=== PATIENT | female | born 1995 | race Caucasian/White ===

== ENCOUNTER 2017-08-28 10:30 | Outpatient (RCR) | payer OTHER, SELFPAY | END 2017-08-28 16:00 | disposition home or self-care (01) | LOC: PT 10:30 | PROVIDERS: PCP Nurse Practitioner Family; Visit Provider Nurse Practitioner Family | DX: M54.5 Low back pain (principal); M54.6 Pain in thoracic spine; M54.2 Cervicalgia | CPT/HCPCS: 97010; 97014; 97035; 97110; 97140; G0283 ==

== ENCOUNTER 2017-09-02 22:48 | Emergency (ER) | payer OTHER, SELFPAY ==
[2017-09-02 22:53] VITALS: BP 137/89; PULSE 77; RESP 18; TEMP 36.7; O2SAT 100; BMI 24.3
[2017-09-02 23:09] LABS: Microscopic, Urine URINE MICROSCOPIC (MICROSCOPIC)
[2017-09-02 23:12] LABS: Appearance,Urine CLEAR (Clear); Bilirubin,Urine Negative (Negative); Blood, Urine 3+ (Negative); Glucose,Urine (UA) Negative (Negative); Ketones,Urine 2+ (Negative); Leukocyte Esterase,Urine Negative (Negative); Nitrate,Urine Negative (Negative); PH,Urine 6.5 (5.0-8.5); Protein,Urine 1+ (Negative); Urobilinogen,Urine 0.2 EU/dl (0.2)
[2017-09-02 23:13] LABS: Color,Urine Amber (Yellow); Urine Pregnancy, HCG Qual. Positive (Negative)
--- NOTE | 2017-09-02 23:23 | HMH.EDPREG ---
ED Disposition Clinical Impression: Threatened in early Rh negative status during Qualifiers: Trimester: first trimester Qualified Code(s): O09.891 - Supervision of other high risk pregnancies, first trimester Disposition: Home, Self-Care Condition on Discharge: Good Instructions: DI for Vaginal Bleeding During Additional Instructions: call pcp in am for follow up and redraw of beta Referrals: Desiree Kate APRN [Primary Care Provider] - - Critical Care Critical Care Time: No Attestation: On 09/02/17, the high probability of a clinically significant, sudden or life threatening deterioration of the following system(s) required my full and direct attention, intervention and personal management. The time I documented below is in addition to time spent performing reported procedures but includes the following listed in this critical care notation. Medical Decision Making - Medical Records Medical records reviewed: Yes: I reviewed the patient's medical records. - Obey Inquiry Pt receiving controlled substance: No Vital Signs: 09/02/17 22:53 Temperature 98.1 F Temperature Source Oral Pulse Rate [Right Radial] 77 Respiratory Rate 18 Blood Pressure [Right Arm] 137/89 Blood Pressure Mean [Right Arm] 105 Blood Pressure Source [Right Arm] Automatic Cuff Blood Pressure Position [Right Arm] Sitting 02 Sat by Pulse Oximetry 100 Oxygen Delivery Method Room Air - Lab Data Lab results reviewed: Yes: I reviewed the patient's lab results. Lab Results 09/02/17 22:55: Urine Color Radha, Urine Appearance Clear, Urine pH 6.5, Ur Specific [place] 1.020, Urine Protein 1+, Urine Glucose (UA) Negative, Urine Ketones 2+, Urine Blood 3+, Urine Nitrate Negative, Urine Bilirubin Negative, Urine Urobilinogen 0.2, Ur Leukocyte Esterase Negative, Urine RBC 10-20, Urine WBC 5-10, Ur Squamous Epith Cells 5-10, Urine Bacteria 2+ 09/02/17 22:55: Urine HCG, Qual Positive 09/02/17 23:45: WBC 7.1, RBC 4.10 L, Hgb 12.6, Hct 38.7, MCV 94.6, MCH 30.8, MCHC 32.6, RDW 12.2, Plt Count 244, MPV 7.2 L, Neut % (Auto) 60.6, Lymph % (Auto) 31.5, [place] % (Auto) 5.7, Eos % (Auto) 1.9, Baso % (Auto) 0.3, Neut # (Auto) 4.3, Lymph # (Auto) 2.3, [place] # (Auto) 0.4, Eos # (Auto) 0.1, Baso # (Auto) 0.0 09/02/17 23:45: HCG, Quant 978 H 09/02/17 23:45: Blood Type Cancelled 09/03/17 00:31: Blood Type O Negative, Antibody Screen Negative Result diagrams: 09/02/17 23:45 Orders (Tests/Meds): ED MEDICATIONS Generic Name Dose Route Start Last Admin Trade Name Freq PRN Reason Stop Dose Admin Rho Immune Globulin 0 unit 09/03/17 00:31 Rhogam Ultra-Filtered Plus IM 10/03/17 00:30 NEEDED PRN For Rh Pre/ scrn resu ORDERS Category Date Time Status Urine Culture Stat Micro 09/02/17 22:55 Received - Physician Consults Physician Consulted: elizabeth Reason -: Pt condition HPI - General Chief complaint: Urogenital-Female Stated complaint: pREG WITH BLEEDING Time Seen by Provider: 09/02/17 23:23 Mode of Arrival: Ambulatory Source of Information: Patient, Medical Record Limitations: No Limitations Description of Symptoms (Recalled from ER Triage Doc. by RN): Blood in urine and burning with urination. She also reports she has been spotting. Pt reports she had a positive test at the [facility] last Saturday. - History of Present Illness HPI Narrative: pos preg test with spotting - no fever or sev pain MD Complaint: vaginal bleeding Onset (ago): day(s) Consistency: intermittent Severity: moderate Vaginal discharge: none Vaginal bleeding: light : yes Date of Last Menstrual Period: unknown care: none - Related Data Home Medications Medication Instructions Recorded Confirmed No Known Home Medications [No 09/02/17 09/02/17 Known Home Medications] Allergies Allergy/AdvReac Type Severity Reaction Status Date /
[2017-09-02 23:25] LABS: Bacteria,Urine 2+ /lpf
--- NOTE | 2017-09-02 23:47 | PC.NURSE ---
At bedside with MD to perform pelvic exam
[2017-09-02 23:50] LABS: Basophils % 0.3 % (0.1-2.0); Eosinophils # 0.1 K/mm3 (0.0-0.4); Eosinophils % 1.9 % (0.1-12.0); Hematocrit 38.7 % (37.0-47.0); Hemoglobin 12.6 g/dL (12.2-16.2); Lymphocytes # 2.3 K/mm3 (0.7-4.5); Lymphocytes % 31.5 K/mm3 (10-50); Mean Corpuscular HGB Conc 32.6 g/dL (31.8-35.4); Mean Corpuscular Hemoglobin 30.8 pg (27.0-31.2); Mean Corpuscular Volume 94.6 fl (81-99); Mean Platelet Volume 7.2 fl (7.4-10.4); Monocytes # 0.4 K/mm3 (0.1-1.0); Monocytes % 5.7 % (1.7-9.3); Neutrophils # 4.3 K/mm3 (1.8-7.8); Neutrophils % 60.6 % (37.0-80.0); Platelet Count 244 K/mm3 (142-424); Red Cell Distribution Width 12.2 % (11.5-17.5); White Blood Count 7.1 K/mm3 (4.8-10.8)
[2017-09-03 00:29] LABS: HCG,Quantitative 978 mIU/mL
--- NOTE | 2017-09-03 00:32 | PC.NURSE ---
ON THE PHONE WITH DR. SHEARER AT THIS TIME
[2017-09-03 01:10] VITALS: BP 125/81; PULSE 86; RESP 14; TEMP 37.1; O2SAT 100
== END 2017-09-03 01:11 | disposition home or self-care (01) ==
PROVIDERS: Emergency Provider Emergency Medicine; PCP Nurse Practitioner Family
DX: O20.0 Threatened abortion (principal); F17.210 Nicotine dependence, cigarettes, uncomplicated
CPT/HCPCS: 36415; 81001; 81025; 84702; 85025; 86900; 86901; 87086; 96372; 99282; J2790

== ENCOUNTER 2018-04-10 09:51 | Inpatient (IN) ==
[2018-04-10 10:53] LABS: Basophils % 0.2 % (0.1-2.0); Eosinophils # 0.1 K/mm3 (0.0-0.4); Hematocrit 35.5 % (37.0-47.0); Lymphocytes % 23.7 % (10-50); Mean Corpuscular HGB Conc 33.9 g/dL (31.8-35.4); Mean Corpuscular Hemoglobin 30.6 pg (27.0-31.2); Mean Corpuscular Volume 90.4 fl (81-99); Mean Platelet Volume 7.1 fl (7.4-10.4); Monocytes # 0.8 K/mm3 (0.1-1.0); Monocytes % 6.4 % (1.7-9.3); Neutrophils # 8.7 K/mm3 (1.8-7.8); Neutrophils % 68.7 % (37.0-80.0); Platelet Count 351 K/mm3 (142-424); Red Blood Count 3.93 M/mm3 (4.20-5.40); Red Cell Distribution Width 13.1 % (11.5-17.5); White Blood Count 12.6 K/mm3 (4.8-10.8)
[2018-04-10 10:58] LABS: Amphetamine/Metha Screen,Urine Negative ng/mL (<1000); Barbiturates Screen,Urine Negative ng/mL (<200); Benzodiazepines Screen,Urine Negative ng/mL (<200); Cannabinoid Screen,Urine Negative ng/mL (<50); Cocaine Screen,Urine Negative ng/mL (<300); Methadone Screen,Urine Negative ng/mL (<300); Opiate Screen,Urine Negative ng/mL (<300); Phencyclidine Screen,Urine Negative ng/mL (<25)
--- NOTE | 2018-04-10 11:30 | Progress Note ---
[facility] Anesthesia Checklist - Patient Identification Patient Identification: Arm Band - Structural Data Admitted From: Inpatient Planned Operative Procedure/s: labor epidural Consent for Planned Operative Procedure(s) Verified: Yes Verified Documents: History and Physical - NPO Status Verified Time NPO: 00:00 - Additional verifications Anesthesia Reactions: No - Airway Assessment C-Spine Mobility Assessed: Yes (mp2) TMJ Mobility Assessed: Yes Dentition: Good Dentition - Neurological Assessment Level of Consciousness: Awake, Alert - Anesthesia Plan Anesthesia Risk discussed: Yes Anesthesia Plan: Verified ASA Class: II Anesthesia Type: Epidural [facility] History I have reviewed the patient's past medical history: Yes Medical History: Denies:: Diabetes Mellitus Type 1, Diabetes Mellitus Type 2 - *Social History Smoking Status: Current every day smoker Tobacco Type: cigarettes # Packs/Day (cigarettes): 1 Alcohol Intake: never
--- NOTE | 2018-04-10 11:34 | Progress Note ---
Internal Medicine - PN: Subj *Date: 04/10/18 *Time: 11:31 Interval history: This 23-year-old 1 para 0 AB 0 white female has had care in [place], [place], and is 36 1/7 weeks by dates. Her records have been obtained and are scanned in. She is Rh- and has received RhoGam. Her toxicology screen is negative today. She arrived at approximately 1030 in active labor at 5 cm of dilatation. Although she was unaware, her bag of water is not intact. The baby looks good on the monitor. An epidural is in situ and working well. At this time her cervix is completely effaced, 8 cm, with the presenting vertex at 0 station. Because her GBS culture has not been done, she is treated with IV ampicillin. Her records indicate no previous problems. She understands that she will be delivering here and accepts that. On-call paper cutter has been notified. Plan vaginal delivery. Exam Vital signs and Labs for Last 24 Hours: Laboratory Results - last 24 hr 04/10/18 10:00: Urine Opiates Screen Negative, Urine Methadone Screen Negative, Ur Barbituates Screen Negative, Ur Phencyclidine Scrn Negative, Ur Amphetamines Screen Negative, U Benzodiazepines Scrn Negative, Urine Cocaine Screen Negative, U Marijuana (THC) Screen Negative 04/10/18 10:05: Membrane Rupture Positive A 04/10/18 10:35: WBC 12.6 H, RBC 3.93 L, Hgb 12.0 L, Hct 35.5 L, MCV 90.4, MCH 30.6, MCHC 33.9, RDW 13.1, Plt Count 351, MPV 7.1 L, Neut % (Auto) 68.7, Lymph % (Auto) 23.7, [place] % (Auto) 6.4, Eos % (Auto) 1.0, Baso % (Auto) 0.2, Neut # (Auto) 8.7 H, Lymph # (Auto) 3.0, [place] # (Auto) 0.8, Eos # (Auto) 0.1, Baso # (Auto) 0.0 I & O for Last 24 hours: Intake & Output 04/07/18 04/08/18 04/09/18 04/10/18 11:59 11:59 11:59 11:59 Weight 207 lb
--- NOTE | 2018-04-10 12:49 | Progress Note ---
Internal Medicine - PN: Subj *Date: 04/10/18 *Time: 12:49 Interval history: Cervix now completely effaced, completely dilated, presenting vertex at 0 station. The patient will start pushing. Exam Vital signs and Labs for Last 24 Hours: Temp Pulse Resp BP Pulse Ox 98.0 F 64 32 H 150/116 H 100 04/10/18 10:00 04/10/18 10:00 04/10/18 10:00 04/10/18 10:00 04/10/18 10:00 Laboratory Results - last 24 hr 04/10/18 10:00: Urine Opiates Screen Negative, Urine Methadone Screen Negative, Ur Barbituates Screen Negative, Ur Phencyclidine Scrn Negative, Ur Amphetamines Screen Negative, U Benzodiazepines Scrn Negative, Urine Cocaine Screen Negative, U Marijuana (THC) Screen Negative 04/10/18 10:05: Membrane Rupture Positive A 04/10/18 10:35: WBC 12.6 H, RBC 3.93 L, Hgb 12.0 L, Hct 35.5 L, MCV 90.4, MCH 30.6, MCHC 33.9, RDW 13.1, Plt Count 351, MPV 7.1 L, Neut % (Auto) 68.7, Lymph % (Auto) 23.7, [place] % (Auto) 6.4, Eos % (Auto) 1.0, Baso % (Auto) 0.2, Neut # (Auto) 8.7 H, Lymph # (Auto) 3.0, [place] # (Auto) 0.8, Eos # (Auto) 0.1, Baso # (Auto) 0.0 04/10/18 10:35: Blood Type O Negative, Antibody Screen Positive I & O for Last 24 hours: Intake & Output 04/08/18 04/09/18 04/10/18 04/11/18 11:59 11:59 11:59 11:59 Weight 207 lb
--- NOTE | 2018-04-10 15:51 | Procedure Note ---
- Delivery Note Delivery Date:: 04/10/18 Delivery Time:: 14:10 Anesthesia Type: Epidural Was labor medically induced?: No Induction method: none delivered prior to 39 weeks?: Yes Justification for early elective delivery:: Active Labor Gender: Male at 1 minute: 8 at 5 minutes: 9 Suction Catheter Type: Santi AF:: clear LAC or MLE?: MLE Delivery Procedure:: This 23-year-old 1, now para 1, Ab0 white female arrived in the labor room having had care in [facility]. She had last been seen 2 weeks previous and on admission here was 36-1/7 weeks in active labor at 5 cm of dilatation. She was admitted and administered an epidural. She continued to labor well and went up lesion at 1245. She pushed effectively and delivered spontaneously, over a midline episiotomy, at 1510. (She had experienced spontaneous rupture of membranes somewhere along the course of her labor.) The baby's nasal and oropharynx were bulb suctioned, and the baby cried spontaneously on the perineum, as was delivered. The cord was clamped and cut, 3 vessels were noted to be within the cord, and cord blood was obtained. The cord pH was 7.34. The baby was handed into the arms of the attending rate clerk passenger, Dr. Begum, who assigned Apgars of 8 at 1 minute and 9 at 5 minutes to this 7 pound 3 ounce, 19 inch male infant, born at 1410. The placenta delivered spontaneously, and, at 1413, making the total time in labor 5 hours 13 minutes. The uterus was inspected and was felt to be clean, and was involuting well, with IV Pitocin running. There were no lacerations or extensions of the midline episiotomy, which was closed in the usual fashion, in layers, with 2-0 Vicryl. The rectovaginal septum was intact at the close of the procedure. The sponge and needle counts correct. Estimated blood loss was 350 cc. The patient tolerated the procedure well, and was recovered in excellent condition. She did receive antibiotics in labor because she had not had a beta strep culture. Her blood type is O Rh-, and she will be worked up for Rh immunoglobulin eligibility. Her rubella titer is immune. She plans to breast-feed. Placental Delivery Description: Spontaneous
[2018-04-11 06:21] LABS: Hematocrit 30.1 % (37.0-47.0)
[2018-04-11 06:41] LABS: Hemoglobin 10.2 g/dL (12.2-16.2)
[2018-04-11 08:31] VITALS: BP 130/70
--- NOTE | 2018-04-11 12:54 | Progress Note ---
Internal Medicine - PN: Subj *Date: 04/11/18 *Time: 09:00 Interval history: PPD #1 No complaints Ambulating, voiding without difficulty Tolerating reg diet Lochia appropriate Exam Vital signs and Labs for Last 24 Hours: Temp Pulse Resp BP Pulse Ox 98.1 F 71 20 130/70 100 04/11/18 08:00 04/11/18 08:00 04/11/18 08:00 04/11/18 08:00 04/10/18 10:24 Laboratory Results - last 24 hr 04/10/18 10:35: Antibody Identification Anti-D 04/10/18 11:42: Urine Color Yellow, Urine Appearance Clear, Urine pH 7.5, Ur Specific [place] 1.015, Urine Protein Negative, Urine Glucose (UA) Negative, Urine Ketones 1+, Urine Blood 1+, Urine Nitrate Negative, Urine Bilirubin Negative, Urine Urobilinogen 0.2, Ur Leukocyte Esterase Negative, Urine RBC 5- 10, Urine WBC Occasional, Ur Squamous Epith Cells Occasional, Urine Bacteria 1+ 04/10/18 14:22: Cord ABG pH 7.34 L 04/11/18 05:47: Hgb 10.2 L D, Hct 30.1 L 04/11/18 05:47: Blood Type O Negative, Antibody Screen Positive, Screen Negative, Baby's Rh Status Positive 04/11/18 09:10: Rhogam Infusion Rhogam release I & O for Last 24 hours: Intake & Output 04/09/18 04/10/18 04/11/18 04/12/18 11:59 11:59 11:59 11:59 Intake Total 2220 / 2220 Output Total 100 / 100 Balance 2120 / 2120 Weight 207 lb - Constitutional no acute distress - *Routine Respiratory Exam Absent: respiratory distress - *Routine Abdominal Exam Present: soft. Absent: tenderness, distended, guarding - *Routine Extremities Exam Present: edema (1+) - *Routine Skin Exam Present: intact, dry, warm - *Routine Neurological Exam Present: alert, oriented X3. Absent: altered mental status - Routine Psychiatric Exam Present: normal affect. Absent: depressed, anxious Assessment and Plan (1) Vaginal delivery Current visit: Yes Status: Acute Category: Medical Code(s): O80 - Encounter for full-term uncomplicated delivery (2) Rh negative status during Current visit: No Status: Acute Category: Medical Code(s): O09.899 - Supervision of other high risk pregnancies, unspecified trimester; Z67.91 - Unspecified blood type, Rh negative - Assessment and plan all Dx Assessment and Plan for all problems:: Routine care Anticipate discharge tomorrow
--- NOTE | 2018-04-12 11:58 | Discharge Summary ---
General - General Admission date:: 04/10/18 Discharge date: 04/12/18 HPI HPI: care and delivery per Dr. Johnson ([place]) Records indicate sufficient care +THC result during care Presented in active labor and subsequent normal 04/10/18 course uneventful Ambulating, tolerating regular diet and voiding without difficulty Lochia normal and pain control sufficient Asymptomatic with mild anemia following delivery: Hgb 12.0 at admission and 10.2 PPD 1 S/P rhogam administration for Rh negative maternal status SW consult re: + UDS (THC) during care Discharge home on PPD #2 with routine instructions for care following vaginal delivery Follow up appointment scheduled with Dr. Johnson Hospital Course Hospital Course: Normal 04/10/18 course uneventful Ambulating, tolerating regular diet and voiding without difficulty Lochia normal and pain control sufficient Asymptomatic with mild anemia following delivery: Hgb 12.0 at admission and 10.2 PPD 1 S/P Rhogam for Rh neg maternal status SW consult re: + UDS (THC) during care Discharge home on PPD #2 with routine instructions for care following vaginal delivery Follow up appointment scheduled with Dr. Johnson Objective Vital signs: Temp Pulse Resp BP Pulse Ox 98.1 F 71 20 130/70 100 04/11/18 08:00 04/11/18 08:00 04/11/18 08:00 04/11/18 08:00 04/10/18 10:24 Narrative: CONSTITUTIONAL: no acute distress HEENT: mucous membranes moist PULMONARY: breathing unlabored without audible wheezes CV: no tachycardia or visible JVD; normal LE peripheral pulses ABD: soft, NT/ND, no guarding : fundus firm at/below umbilicus SKIN: no visible rash or lesions EXT: 1+ edema LEs NEURO: alert/oriented, no altered mental status PSYCH: appropriate mood and demeanor without visible anxiety/depression DS: Diagnosis - Discharge Diagnosis (1) Vaginal delivery Status: Acute (2) Rh negative status during Status: Acute (3) Anemia associated with acute blood loss Status: Acute Discharge Plan - Patient Discharge Instructions ACTIVITY: Continue current activity DIET: regular diet Additional Instructions: no heavy lifting, no strenuous activity, no driving for 2 weeks or while on prescription pain medication. Patient Instructions: Depression, Hemorrhage, DI for Episiotomy, Post Discharge Instructions - Follow up Plan Follow up with: Umesh Johnson [Referring] - 2 weeks Disposition: Home, Self-Correction Medications: Home Medications Medication Instructions Recorded Confirmed Type No Known Home Medications 09/02/17 04/10/18 History Prescriptions/Medication Reconciliation: New Oxycodone HCl [OxyIR 5mg tablet] 5 mg PO Q4HP PRN #20 tab PRN Reason: Moderate Pain Ibuprofen [Motrin 400mg tablet] 400 mg PO Q4HP PRN #24 tablet PRN Reason: MODERATE PAIN Vits96/Iron Fum/Folic [ MVI w/Iron Tablet] 1 each PO 1700 tablet No Action No Known Home Medications
== END 2018-04-12 13:05 | disposition home or self-care (01) ==
LOC: OBOUT 09:51 → OB 09:53
PROVIDERS: ADMIT Obstetrics & Gynecology; ATTEND Obstetrics & Gynecology

== ENCOUNTER 2021-08-24 20:22 | Emergency (ER) | payer MEDICAID, SELFPAY ==
[2021-08-24 20:23] VITALS: BP 142/88; PULSE 88; RESP 18; TEMP 36.9; O2SAT 99; BMI 29.2
[2021-08-24 21:01] VITALS: BP 160/125; PULSE 83; O2SAT 100
[2021-08-24 21:07] VITALS: BMI 29.2
[2021-08-24 21:11] LABS: Microscopic, Urine URINE MICROSCOPIC (MICROSCOPIC)
[2021-08-24 21:18] LABS: Appearance,Urine CLEAR (Clear); Blood, Urine 1+ (Negative); Color,Urine YELLOW (Yellow); Glucose,Urine (UA) Negative (Negative); Ketones,Urine 3+ (Negative); Leukocyte Esterase,Urine 2+ (Negative); Nitrate,Urine Negative (Negative); Protein,Urine 1+ (Negative); Specific Gravity, Urine >= 1.030 (1.005-1.030); Urobilinogen,Urine 0.2 EU/dl (0.2)
[2021-08-24 21:25] LABS: Bilirubin,Urine Negative (Negative)
[2021-08-24 21:26] LABS: HCG Qualitative, Serum Positive (Negative)
[2021-08-24 21:33] LABS: Chloride 104 mmol/L (98-107); Sodium 134 mmol/L (136-145)
[2021-08-24 21:34] LABS: Potassium 3.6 mmoL/L (3.5-5.1)
[2021-08-24 21:36] LABS: Alanine Aminotransferase 19 U/L (12-78); Albumin Level 4.2 g/dl (3.5-5.0); Albumin/Globulin Ratio 1.4 (1.1-1.8); Alkaline Phosphatase 41 U/L (38-126); Anion Gap 13.6 mEq/L (5-15); Aspartate Amino Transferase 33 U/L (14-36); Bilirubin,Total 0.5 mg/dl (0.2-1.3); Blood Urea Nitrogen 7 mg/dl (7-17); Carbon Dioxide 20 mmol/L (22.0-30.0); Creatinine Clearance Estimated 242 mL/min (50-200); Estimated Glomerular Filt Rate 149 ml/min (>60); GFR (African American) 180 ML/MIN (>60); Globulin 2.9 g/dL (1.3-3.2); Total Protein,Serum 7.1 g/dl (6.3-8.2)
[2021-08-24 21:37] LABS: Calcium 8.5 mg/dl (8.4-10.2); Glucose 87 mg/dl (74-100); Lactic Acid 0.8 mmol/L (0.7-2.1)
[2021-08-24 21:39] LABS: Basophils # 0.2 K/mm3 (0-0.2); Basophils % 2.8 % (0.1-2.0); Eosinophils # 0.1 K/mm3 (0.0-0.4); Eosinophils % 1.3 % (0.1-12.0); Hematocrit 42.7 % (37.0-47.0); Hemoglobin 13.9 g/dL (12.2-16.2); Lymphocytes # 0.9 K/mm3 (0.7-4.5); Lymphocytes % 14.4 % (10-50); Mean Corpuscular HGB Conc 32.5 g/dL (31.8-35.4); Mean Corpuscular Hemoglobin 32.7 pg (27.0-31.2); Mean Corpuscular Volume 100.8 fl (81-99); Mean Platelet Volume 7.7 fl (7.4-10.4); Monocytes # 0.5 K/mm3 (0.1-1.0); Monocytes % 8.1 % (1.7-9.3); Neutrophils # 4.5 K/mm3 (1.8-7.8); Neutrophils % 73.4 % (37.0-80.0); Platelet Count 284 K/mm3 (142-424); Red Blood Count 4.24 M/mm3 (4.20-5.40); Red Cell Distribution Width 12.5 % (11.5-17.5); White Blood Count 6.1 K/mm3 (4.8-10.8)
[2021-08-24 21:42] LABS: C-Reactive Protein 30.5 mg/L (0-4)
[2021-08-24 21:56] LABS: Procalcitonin 0.118 ng/mL (0.0-2.0)
[2021-08-24 22:00] VITALS: BP 129/81; PULSE 86; O2SAT 100
[2021-08-24 22:05] LABS: Bacteria,Urine 2+ /lpf
[2021-08-24 22:19] LABS: Amylase 39 U/L (30-110); Lipase 18 U/L (23-300)
[2021-08-24 22:24] LABS: Erythrocyte Sedimentation Rate 25 mm/hr (0-20)
[2021-08-24 22:26] LABS: HCG,Quantitative 55887 mIU/ml (0-5.42)
[2021-08-24 23:01] VITALS: BP 138/51; PULSE 80; O2SAT 100
--- NOTE | 2021-08-24 23:14 | HMH.EDNVD ---
ED Disposition Clinical Impression: Hyperemesis gravidarum Qualifiers: Weeks of gestation: less than 8 weeks Qualified Code(s): Z3A.01 - Less than 8 weeks gestation of UTI (urinary tract infection) Qualifiers: Urinary tract infection type: site unspecified Hematuria presence: without hematuria Qualified Code(s): N39.0 - Urinary tract infection, site not specified Disposition: Home, Self-Care Condition on Discharge: Good Instructions: Hyperemesis Gravidarum Additional Instructions: fluids and call ob in am and call about urine culture results Referrals: Olga Betancur APRN [Primary Care Provider] - Avelino Stapleton MD [Staff Physician] - - Critical Care Critical Care Time: No Attestation: On 08/24/21, the high probability of a clinically significant, sudden or life threatening deterioration of the following system(s) required my full and direct attention, intervention and personal management. The time I documented below is in addition to time spent performing reported procedures but includes the following listed in this critical care notation. Medical Decision Making - Medical Records Medical records reviewed: Yes: I reviewed the patient's medical records. - Obey Inquiry Pt receiving controlled substance: No Vital Signs: 08/24/21 20:23 Temperature 98.4 F Temperature Source Oral Pulse Rate [Right] 88 Respiratory Rate 18 Blood Pressure [Right Arm] 142/88 H Blood Pressure Mean [Right Arm] 106 Blood Pressure Source [Right Arm] Automatic Cuff 02 Sat by Pulse Oximetry 99 Oxygen Delivery Method Room Air - Lab Data Lab results reviewed: Yes: I reviewed the patient's lab results. Lab Results 08/24/21 20:53: Urine Color Yellow, Urine Appearance Clear, Urine pH 6.0, Ur Specific [place] >= 1.030, Urine Protein 1+, Urine Glucose (UA) Negative, Urine Ketones 3+, Urine Blood 1+, Urine Nitrate Negative, Urine Bilirubin Negative, Urine Urobilinogen 0.2, Ur Leukocyte Esterase 2+ A, Urine RBC 3-5, Urine WBC 5-10, Ur Squamous Epith Cells 3-5, Urine Bacteria 2+ 08/24/21 21:00: WBC 6.1, RBC 4.24, Hgb 13.9, Hct 42.7, MCV 100.8 H, MCH 32.7 H, MCHC 32.5, RDW 12.5, Plt Count 284, MPV 7.7, Neut % (Auto) 73.4, Lymph % (Auto) 14.4, [place] % (Auto) 8.1, Eos % (Auto) 1.3, Baso % (Auto) 2.8 H, Neut # (Auto) 4.5, Lymph # (Auto) 0.9, [place] # (Auto) 0.5, Eos # (Auto) 0.1, Baso # (Auto) 0.2, ESR 25 H 08/24/21 21:00: Sodium 134 L, Potassium 3.6, Chloride 104, Carbon Dioxide 20 L, Anion Gap 13.6, BUN 7, Creatinine 0.50 L, Estimated Creat Clear 242, Estimated GFR 149, Est GFR ( Amer) 180, Glucose 87, Calcium 8.5, Total Bilirubin 0.5, AST 33, ALT 19, Alkaline Phosphatase 41, C-Reactive Protein 30.5 H, Total Protein 7.1, Albumin 4.2, Globulin 2.9, Albumin/Globulin Ratio 1.4, Procalcitonin 0.118, HCG, Quant [id number] H 08/24/21 21:00: Serum HCG, Qual Positive 08/24/21 21:00: Lactate 0.8 08/24/21 21:00: Amylase 39, Lipase 18 L Result diagrams: 08/24/21 21:00 08/24/21 21:00 Orders (Tests/Meds): ED MEDICATIONS Generic Name Dose Route Start Last Admin Trade Name Freq PRN Reason Stop Dose Admin Lactated Ringer's 1,000 mls @ 999 mls/hr 08/24/21 21:15 08/24/21 21:31 Lactated Ringer's 1000 Ml Bag IV 08/24/21 22:15 999 mls/hr .Q1H1M STU Administration Discontinued Medications Generic Name Dose Route Start Last Admin Trade Name Freq PRN Reason Stop Dose Admin Acetaminophen 650 mg 08/24/21 22:30 08/24/21 22:32 Acetaminophen 325mg Tab PO 08/24/21 22:31 650 mg ONCE ONE Administration ORDERS Category Date Time Status Diarrhea 23 Panel, PCR Stat Lab 08/24/21 21:08 Ordered Urine Culture Stat Micro 08/24/21 20:53 Received Medical Decision Narrative: has vomiting and has early preg but no indications for pelvic u/s and possible uti Nausea/Vomiting/Diarrhea HPI - General Chief complaint: Nausea/Vomiting/Diarrhea Stated complaint: PREG v&d aBD pAIN Time Seen by Provider:
--- NOTE | 2021-08-24 23:21 | PC.NURSE ---
ER at bedside
[2021-08-24 23:59] VITALS: BP 118/78; PULSE 81; RESP 20; TEMP 36.9; O2SAT 98
== END 2021-08-25 00:12 | disposition home or self-care (01) ==
PROVIDERS: Emergency Provider Emergency Medicine; PCP Nurse Practitioner
DX: O23.40 Unspecified infection of urinary tract in pregnancy, unspecified trimester (principal); N39.0 Urinary tract infection, site not specified; O99.611 Diseases of the digestive system complicating pregnancy, first trimester; R19.8 Other specified symptoms and signs involving the digestive system and abdomen; O99.333 Smoking (tobacco) complicating pregnancy, third trimester; Z3A.01 Less than 8 weeks gestation of pregnancy; Z88.8 Allergy status to other drugs, medicaments and biological substances
CPT/HCPCS: 80053; 81001; 82150; 83605; 83690; 84145; 84702; 84703; 85025; 85651; 86140; 87086; 96360; 96365; 96366; 96367; 99283; J0696

== ENCOUNTER → 2021-08-28 11:48 | Outpatient (CLI) | payer MEDICAID, SELFPAY ==
[2021-08-28 12:19] LABS: Basophils % 0.8 % (0.1-2.0); Eosinophils # 0.1 K/mm3 (0.0-0.4); Eosinophils % 1.4 % (0.1-12.0); Hematocrit 39.7 % (37.0-47.0); Hemoglobin 13.4 g/dL (12.2-16.2); Lymphocytes # 1.1 K/mm3 (0.7-4.5); Lymphocytes % 31.1 % (10-50); Mean Corpuscular HGB Conc 33.9 g/dL (31.8-35.4); Mean Corpuscular Hemoglobin 33.2 pg (27.0-31.2); Mean Platelet Volume 8.2 fl (7.4-10.4); Monocytes # 0.3 K/mm3 (0.1-1.0); Monocytes % 8.2 % (1.7-9.3); Neutrophils % 58.6 % (37.0-80.0); Platelet Count 238 K/mm3 (142-424); Red Blood Count 4.05 M/mm3 (4.20-5.40); Red Cell Distribution Width 12.3 % (11.5-17.5); White Blood Count 3.4 K/mm3 (4.8-10.8)
[2021-08-29 04:18] LABS: HIV Screen 4th Generation wRfx Non Reactive (Non Reactive); Hepatitis B Surface Antigen Negative (Negative); Hepatitis C Antibody <0.1 s/co ratio (0.0-0.9)
[2021-08-29 08:34] LABS: HSV 1 IgG, Type Spec 2.29 index (0.00-0.90); HSV 2 IgG, Type Spec <0.91 index (0.00-0.90); Rubella Antibodies, IgG 3.05 index (Immune >0.99)
[2021-08-29 11:15] LABS: Rapid Plasma Reagin Ab Titer Non Reactive (NonRea<1:1)
== END ==
PROVIDERS: PCP Physician Assistant; Visit Provider Nurse Practitioner Obstetrics & Gynecology
DX: N92.6 Irregular menstruation, unspecified (principal); Z3A.01 Less than 8 weeks gestation of pregnancy
CPT/HCPCS: 36415; 84702; 85025; 86592; 86695; 86703; 86762; 86790; 86850; 87340; 87380; G0432

== ENCOUNTER 2022-02-23 18:33 | Outpatient (CLI) | payer MEDICAID, SELFPAY ==
[2022-02-23 18:49] VITALS: BMI 33.7
[2022-02-23 19:14] LABS: Microscopic, Urine URINE MICROSCOPIC (MICROSCOPIC)
[2022-02-23 19:22] LABS: Appearance,Urine CLEAR (Clear); Bilirubin,Urine Negative (Negative); Blood, Urine Negative (Negative); Color,Urine YELLOW (Yellow); Glucose,Urine (UA) Negative (Negative); Ketones,Urine Negative (Negative); Leukocyte Esterase,Urine 2+ (Negative); Nitrate,Urine Negative (Negative); PH,Urine 6.5 (5.0-8.5); Protein,Urine Negative (Negative); Specific Gravity, Urine <= 1.005 (1.005-1.030); Urobilinogen,Urine 0.2 EU/dl (0.2)
[2022-02-23 19:27] LABS: Amphetamine/Metha Screen,Urine Negative ng/ml (<1000)
[2022-02-23 19:28] LABS: Barbiturates Screen,Urine Negative ng/ml (<200); Benzodiazepines Screen,Urine Negative ng/ml (<200)
[2022-02-23 19:29] LABS: Cannabinoid Screen,Urine Positive ng/ml (<50)
[2022-02-23 19:30] LABS: Cocaine Screen,Urine Negative ng/ml (<300); Methadone Screen,Urine Negative ng/ml (<300)
[2022-02-23 19:31] LABS: Opiate Screen,Urine Negative ng/ml (<300)
[2022-02-23 19:32] LABS: Phencyclidine Screen,Urine Negative ng/ml (<25)
[2022-02-23 19:39] LABS: Bacteria,Urine Trace /lpf
[2022-02-23 19:51] VITALS: BP 126/79; PULSE 85; RESP 17; TEMP 36.5; O2SAT 97; BMI 33.9
== END 2022-02-23 22:05 | disposition home or self-care (01) ==
LOC: OBOUT 18:37 → OB 18:39
PROVIDERS: Visit Provider Obstetrics & Gynecology
DX: O47.03 False labor before 37 completed weeks of gestation, third trimester (principal); Z3A.33 33 weeks gestation of pregnancy; M54.50 Low back pain, unspecified
CPT/HCPCS: 59025; 80305; 81001; 87086; 96365; 96367; G0463; J0696

== ENCOUNTER 2022-02-27 08:17 | Outpatient (CLI) | payer MEDICAID, SELFPAY ==
[2022-02-27 08:19] VITALS: BMI 33.7
--- NOTE | 2022-02-27 08:21 | US_ITS ---
FINAL REPORT CLINICAL HISTORY: vaginal bleeding; placenta previa; amniotic fluid 19.5 cm; bpp 8/8 FINDINGS: TRANSABDOMINAL ULTRASOUND There is a single live intrauterine gestation. Presentation is cephalic. The cervix is closed and measures 3.24 cm. There is partial placenta previa with the placenta located posteriorly. Cardiac activity is confirmed at 152 bpm. Fetus is active and practice breathing is seen. AMAN: 19.52 cm which is at the upper limits of normal. MEASUREMENTS: GESTATION AGE: 33 weeks 6 days. BREATHIN/2 MOVEMENT: 2/2 TONE: 2/2 FLUID VOLUME: 2/2 BPP SCORE: 8/8 IMPRESSION: Single living IUP with an gestational age of 33 weeks 6 days. BPP SCORE: 8/8. AMAN 19.52 cm, upper limits of normal. Partial placenta previa. Reviewed, Interpreted and Dictated by Josie Cruz MD Transcribed by Sunshine Bond Authenticated and [facility]
[2022-02-27 09:00] VITALS: BP 116/75; PULSE 94; RESP 18; TEMP 37; O2SAT 98; BMI 33.7
[2022-02-27 09:09] LABS: Basophils # 0.1 K/mm3 (0-0.2); Eosinophils # 0.1 K/mm3 (0.0-0.4); Eosinophils % 1.1 % (0.1-12.0); Hematocrit 32.7 % (37.0-47.0); Lymphocytes # 2.4 K/mm3 (0.7-4.5); Lymphocytes % 22.1 % (10-50); Mean Corpuscular HGB Conc 36.8 g/dL (31.8-35.4); Mean Corpuscular Hemoglobin 35.7 pg (27.0-31.2); Mean Platelet Volume 7.3 fl (7.4-10.4); Monocytes # 0.7 K/mm3 (0.1-1.0); Monocytes % 6.2 % (1.7-9.3); Neutrophils # 7.6 K/mm3 (1.8-7.8); Neutrophils % 69.5 % (37.0-80.0); Platelet Count 364 K/mm3 (142-424); Red Blood Count 3.38 M/mm3 (4.20-5.40); Red Cell Distribution Width 13.2 % (11.5-17.5); White Blood Count 10.9 K/mm3 (4.8-10.8)
--- NOTE | 2022-02-27 10:46 | EXP.HPDC ---
General Admission date:: 02/27/22 Discharge date: 02/27/22 *Admission Date: 02/27/22 *Chief complaint: vaginal bleeding *History of present illness: 26 yo @ 33 6/7 by stated PIPO care with [facility], Dr. Suh; records not available at this time She reports acute onset of moderate bright red vaginal bleeding beginning 7am today She denied contractions or LOF at time of presentation but was showing contractions q 2-3 minutes on tocometer, which she later acknowledged feeling She reports that 20 week anatomy ultrasound showed placenta previa, but no interval assessment of placental status scheduled until 34 weeks She has not had any vaginal bleeding with this until this morning Upon presentation, she had a large amount of bleeding on pad Ultrasound confirmed posterior placenta previa; AMAN 19.5 Cervix visually closed on SSE Hgb 12.0, Platelet 364 UDS: + THC Normal VS with BP 128/77 She was intitially given subcutaneous brethine and celestone; after ultrasound was completed she was started on magnesium sulfate for tocolysis She will be transferred to after speaking with [facility] Dr. Umesh Sarah PMH: Anxiety/depression PSH: L/S cholecystectomy, tooth extraction OB Hx: G1 care in [place] with PROM 36 1 and uncomplicated at [facility] 2018 Rh negative status noted from previous delivery but current records unavailable to confirm Rhogam administration with this Meds: Zoloft 50mg Allergies: Ceclor Social: + Tobacco 1PPD, + THC PFSH PFSH Medical History (Updated 02/27/22 @ 11:22 by Keesha Polanco MD) Anxiety Hx of nasal polyp Placenta previa Placenta previa Positive urine drug screen delivery Surgical History (Updated 02/27/22 @ 10:07 by Joanne Mckeon RN) History of appendectomy Family History (Updated 02/27/22 @ 10:04 by Joanne Mckeon RN) No significant family history Social History (Updated 02/27/22 @ 10:08 by Joanne Mckeon RN) Smoking Status: Current every day smoker tobacco type: cigarettes packs per day: 1 alcohol intake: never substance use type: marijuana current occupational status: unemployed Travel in the last 8 weeks: None Review of Systems Constitutional Constitutional: Reports system reviewed and no additional complaints, except as documented and Denies headache(s) ENT Ears, Nose, Mouth, and Throat: Denies headache(s) *Gastrointestinal Gastrointestinal: Denies abdominal pain *Genitourinary Genitourinary: Reports abnormal vaginal bleeding and Reports other (+ contractions) *Neurologic Neurologic: Denies headache(s) and Denies other visual disturbances Exam Data for Last 24 hours Vital signs and Labs for Last 24 Hours: Temp Pulse Resp BP Pulse Ox 98.6 F 94 H 18 116/75 98 02/27/22 09:00 02/27/22 09:00 02/27/22 09:00 02/27/22 09:00 02/27/22 09:00 Laboratory Results - last 24 hr 02/27/22 08:30: WBC 10.9 H, RBC 3.38 L, Hgb 12.0 L, Hct 32.7 L, MCV 97.0, MCH 35.7 H, MCHC 36.8 H, RDW 13.2, Plt Count 364, MPV 7.3 L, Neut % (Auto) 69.5, Lymph % (Auto) 22.1, [place] % (Auto) 6.2, Eos % (Auto) 1.1, Baso % (Auto) 1.0, Neut # (Auto) 7.6, Lymph # (Auto) 2.4, [place] # (Auto) 0.7, Eos # (Auto) 0.1, Baso # (Auto) 0.1 02/27/22 08:30: Blood Type O Negative, Antibody Screen Positive I & O for Last 24 hours: Intake & Output 02/24/22 02/25/22 02/26/22 02/27/22 11:59 11:59 11:59 11:59 Weight 229 lb 0.012 oz Constitutional Constitutional: no acute distress *Routine HEENT Exam Head: Present normocephalic Eye: Absent conjunctival icterus or scleral injection ENT: Present mucous membranes moist *Routine Neck Exam Neck: Present supple *Routine Respiratory Exam Respiratory: Present CTA bilaterally; Absent respiratory distress *Routine Cardiovascular Exam Cardiovascular: Present RRR *Routine Abdominal Exam Abdominal: Present soft; Absent tenderness or d
[2022-02-27 11:15] VITALS: BP 117/73; PULSE 89; RESP 17; O2SAT 97
[2022-02-27 11:16] LABS: Magnesium 1.5 mg/dl (1.6-2.3)
[2022-02-27 11:20] VITALS: BP 124/82; PULSE 94; RESP 17; O2SAT 98
[2022-02-27 11:25] VITALS: BP 119/78; PULSE 93; RESP 18; O2SAT 95
[2022-02-27 11:30] VITALS: BP 124/72; PULSE 89; RESP 18; O2SAT 96
[2022-02-27 11:35] VITALS: BP 123/75; PULSE 87; RESP 19; O2SAT 96
== END 2022-02-27 11:50 | disposition admitted as inpatient to this hospital (09) ==
LOC: OBOUT 08:17 → OB 08:19
PROVIDERS: Visit Provider Obstetrics & Gynecology
DX: O47.03 False labor before 37 completed weeks of gestation, third trimester (principal); Z3A.33 33 weeks gestation of pregnancy; O46.90 Antepartum hemorrhage, unspecified, unspecified trimester; O44.00 Complete placenta previa NOS or without hemorrhage, unspecified trimester; O09.899 Supervision of other high risk pregnancies, unspecified trimester; Z67.91 Unspecified blood type, Rh negative; O99.333 Smoking (tobacco) complicating pregnancy, third trimester; R82.5 Elevated urine levels of drugs, medicaments and biological substances; Z87.51 Personal history of pre-term labor
CPT/HCPCS: 59025; 76819; 83735; 85025; 86850; 86870; 96365; 96372; G0463; J2405

== ENCOUNTER 2023-08-22 22:40 | Emergency (ER) | payer SELFPAY ==
[2023-08-22 22:41] VITALS: BP 150/99; PULSE 79; RESP 18; TEMP 36.8; O2SAT 95; BMI 35.4
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
[2023-08-22] MEDS: KETOROLAC 30MG/ML VIAL 30 MG IM (23:02)
[2023-08-22 23:20] VITALS: BP 153/105; PULSE 94; RESP 17; TEMP 36.7; O2SAT 97
== END 2023-08-22 23:21 | disposition home or self-care (01) ==
PROVIDERS: Emergency Provider Emergency Medicine; PCP Nurse Practitioner
DX: R51.9 Headache, unspecified (principal); V48.0XXA Car driver injured in noncollision transport accident in nontraffic accident, initial encounter; F17.210 Nicotine dependence, cigarettes, uncomplicated; M25.521 Pain in right elbow
CPT/HCPCS: 73060; 73080; 73090; 96372; 99284

== ENCOUNTER 2024-04-14 21:36 | Emergency (ER) | payer SELFPAY ==
--- NOTE | 2024-04-14 | CT_ITS ---
PROCEDURE INFORMATION: Exam: CT Abdomen And Pelvis With Contrast Exam date and time: 04/15/2024 12:00 AM Age: 29 years old Clinical indication: Abdominal pain; Additional info: Flank pain TECHNIQUE: Imaging protocol: Computed tomography of the abdomen and pelvis with contrast. Radiation optimization: All CT scans at this facility use at least one of these dose optimization techniques: automated exposure control; mA and/or kV adjustment per patient size (includes targeted exams where dose is matched to clinical indication); or iterative reconstruction. Contrast material: ISOVUE; Contrast volume: 75 ml; Contrast route: IV; COMPARISON: No relevant prior studies available. FINDINGS: Lungs: Wedge-shaped consolidative opacity is noted at the posterior right lung base with a questionable pulmonary arterial filling defects seen within a right lower lobe segmental branch (image 3 series 3). Liver: There is fat deposition adjacent to the falciform ligament. Gallbladder and biliary ducts: No acute process. Pancreas: Normal. Spleen: Normal. Adrenal glands: The adrenal glands appear normal. Kidneys and ureters: There are no soft tissue renal masses or hydronephrosis. Stomach and bowel: The stomach, small bowel, and colon are well-distended and show no evidence of wall thickening, masses, or obstruction. Appendix: Patient is status post appendectomy. Intraperitoneal space: Unremarkable. Vasculature: See Lungs finding. Lymph nodes: No lymphadenopathy. Urinary bladder: There is moderate distention of the urinary bladder. Reproductive: Myomatous uterus is noted. Bones/joints: The visualized osseous structures of the abdomen and pelvis appear normal for patient age. Soft tissues: There are calcifications within the buttocks which most likely reflect injection granulomas. IMPRESSION: Possible segmental right lower lobe pulmonary embolus with associated pulmonary infarct, correlate with symptoms and consider thoracic CTA for further evaluation.
[2024-04-14 21:37] VITALS: BP 158/96; PULSE 78; RESP 16; TEMP 36.8; O2SAT 97; BMI 34.1
[2024-04-14 22:32] LABS: Basophils # 0.1 K/mm3 (0-0.2); Eosinophils # 0.1 K/mm3 (0.0-0.4); Eosinophils % 1.5 % (0.1-12.0); Hematocrit 40.4 % (37.0-47.0); Lymphocytes # 2.1 K/mm3 (0.7-4.5); Lymphocytes % 21.9 % (10-50); Mean Corpuscular HGB Conc 34.8 g/dL (31.8-35.4); Mean Corpuscular Volume 97.8 fl (81-99); Mean Platelet Volume 6.9 fl (7.4-10.4); Monocytes # 0.6 K/mm3 (0.1-1.0); Monocytes % 6.3 % (1.7-9.3); Neutrophils # 6.6 K/mm3 (1.8-7.8); Neutrophils % 69.3 % (37.0-80.0); Platelet Count 389 K/mm3 (142-424); Red Blood Count 4.13 M/mm3 (4.20-5.40); Red Cell Distribution Width 17.8 % (11.5-17.5); White Blood Count 9.6 K/mm3 (4.8-10.8)
[2024-04-14 22:49] LABS: HCG Qualitative, Serum Negative (Negative)
[2024-04-14 22:53] LABS: Alanine Aminotransferase 18 U/L (12-78); Albumin Level 3.9 g/dl (3.5-5.0); Albumin/Globulin Ratio 1.4 (1.1-1.8); Alkaline Phosphatase 71 U/L (38-126); Anion Gap 9.8 mEq/L (5-15); Aspartate Amino Transferase 23 U/L (14-36); Bilirubin,Total 0.7 mg/dl (0.2-1.3); Blood Urea Nitrogen 8 mg/dl (7-17); Calcium 8.7 mg/dl (8.4-10.2); Carbon Dioxide 26 mmol/L (22.0-30.0); Chloride 103 mmol/L (98-107); Creatinine Clearance Estimated 229 mL/min (50-200); Estimated Glomerular Filt Rate 118 ml/min (>60); GFR (African American) 143 ML/MIN (>60); Globulin 2.8 g/dL (1.3-3.2); Glucose 110 mg/dl (74-100); Sodium 136 mmol/L (136-145); Total Protein,Serum 6.7 g/dl (6.3-8.2)
[2024-04-14 22:56] LABS: Potassium 2.8 mmoL/L (3.5-5.1)
--- NOTE | 2024-04-14 22:56 | PC.NURSE ---
Dr. Malik notified of potassium 2.8, critical results.
--- NOTE | 2024-04-14 23:25 | HMH.EDGENADL ---
Discharge Plan Disposition Patient Disposition: Home, Self-Care Prescriptions Prescriptions: New rivaroxaban 15 mg tablet 15 mg PO BID 18 Days Qty: 36 0RF rivaroxaban 20 mg tablet 20 mg PO DAILY Qty: 90 0RF methocarbamol 500 mg tablet 500 mg PO Q6H PRN (Reason: pain) Qty: 30 0RF No Action phentermine 37.5 mg tablet 37.5 mg PO DAILY Patient Comments: TAKE ONE TABLET BY MOUTH DAILY Referrals Follow up/Referrals: Olga Betancur APRN [Primary Care Provider] - See instructions Activity Restrictions/Add. Instructions Additional Instructions/Restrictions: Please begin taking anticoagulation as discussed. Recommend discontinuing smoking. Please follow-up with your primary care provider for recheck of your labs and reassessment.. Please return to the emergency department if you develop any new or worsening symptoms or become concerned for your health. Clinical Impressions Clinical Impression: Hypokalemia Pulmonary embolism Qualifiers: Pulmonary embolism type: other Chronicity: acute Acute cor pulmonale presence: without acute cor pulmonale Qualified Code(s): I26.99 - Other pulmonary embolism without acute cor pulmonale Instructions Patient Instructions: DI for Pulmonary Embolism Print Language Print Language: Tuvaluan Discharge ED Provider: Korey Storey Adult HPI General Chief complaint: Abdominal Pain Stated complaint: back pain Time Seen by Provider: 04/14/24 23:18 Mode of Arrival: Ambulatory Source of Information: Patient Limitations: No Limitations Description of Symptoms (Recalled from ER Triage Doc. by RN): pt to the ED with Right flank pain x 2 days. pt reports she took some ibuprofen for it yesterday and it helped but has gotten worse throughout the day. pt hasnt taken any other medication since 8am this morning. pt denies pain when urinating. History of Present Illness HPI narrative: 29-year-old female without significant past medical history presents for flank pain. Reports has been going on for several days. It is worse with movement, sometimes worse with a deep breath. Reports it feels like it spasms sometimes. Reports that she feels that below the ribs on the right. She denies any urinary symptoms, denies history of kidney stones, denies any recent trauma. Related Data Home Medications ?Medication ?Instructions ?Recorded ?Confirmed phentermine 37.5 mg tablet 37.5 mg PO DAILY 08/22/23 08/22/23 Previous Rx's ?Medication ?Instructions ?Recorded methocarbamol 500 mg tablet 500 mg PO Q6H PRN pain #30 tabs 04/15/24 rivaroxaban 15 mg tablet 15 mg PO BID 18 days #36 tabs 04/15/24 rivaroxaban 20 mg tablet 20 mg PO DAILY #90 tabs 04/15/24 Allergies Allergy/AdvReac Type Severity Reaction Status Date / Time cefaclor [From Ceclor] Allergy Verified 09/26/21 11:36 [facility] Disclaimer: The information contained in this section may have been updated after the patient was seen, as this information can be updated by other users. Medical History Positive urine drug screen Placenta previa delivery Placenta previa Hx of nasal polyp Anxiety Surgical History History of appendectomy Family History Other No significant family history Social History Smoking Status: Current every day smoker tobacco type: cigarettes packs per day: 1 alcohol intake: never substance use type: marijuana current occupational status: unemployed Travel in the last 8 weeks: None Other Medical History Have you received the Flu Vaccine for this season: No Have you received the Pneumonia Vaccine: No ROS Obtained: Yes All systems reviewed & no additional complaints except as documented Physical Exam General General appearance: alert and in no apparent distress Head Head exam: atraumatic and normocephalic Eye Eye exam: Present normal appearance, PERRL and EOMI ENT ENT exam: Present normal oropharynx and normal external ear exam Neck Neck exam: Present normal inspection and full ROM Chest Chest inspection: Present normal inspection and symmetric chest wall rise; Absent tenderness Respiratory Respiratory exam: Present normal lung sounds bilaterally; Absent respiratory distress Cardiovascular Cardiovascular exam: Present regular rate and normal rhythm Abdominal Exam Abdominal exam: Present soft; Absent distention, tenderness or guarding Extremities Exam Extremities exam: Present normal inspection; Absent edema or joint swelling Back Exam Back exam: Present normal inspection; Absent tenderness Neurological Exam Neurological exam: Present alert and oriented X3; Absent motor sensory deficit Psychiatric Psychiatric exam: Present normal affect and normal mood Skin Skin exam: Present warm, dry and normal color Lymphatic Lymphatic Findings: no adenopathy Medical Decision Making Medical Records Medical records reviewed: Yes I reviewed the patient's medical records. Screening: Per USPSTF and CDC recommendations, given the prevalence of disease in our region, it is our hospital?s policy to screen for HIV and viral Hepatitis for all patients aged 18 and over and those with ongoing risk factors. Obey Inquiry Pt receiving controlled substance: No Obey was queried for this patient: No Vital Signs: 04/14/24 21:37 04/15/24 02:15 Temperature 98.2 F 98.2 F Temperature Source Oral Oral Pulse Rate 77 Pulse Rate [Left Radial] 78 Respiratory Rate 16 20 Blood Pressure 162/96 H Blood Pressure [Right Arm] 158/96 H Blood Pressure Mean [Right Arm] 116 Blood Pressure Source Automatic Cuff Blood Pressure Source [Right Arm] Automatic Cuff Blood Pressure Position [Right Arm] Sitting 02 Sat by Pulse Oximetry 97 Oxygen Delivery Method Room Air Room Air Lab Data Lab results reviewed: Yes I reviewed the patient's lab results. Lab Results 04/14/24 22:20: WBC 9.6, RBC 4.13 L, Hgb 14.0, Hct 40.4, MCV 97.8, MCH 34.0 H, MCHC 34.8, RDW 17.8 H, Plt Count 389, MPV 6.9 L, Neut % (Auto) 69.3, Lymph % (Auto) 21.9, [place] % (Auto) 6.3, Eos % (Auto) 1.5, Baso % (Auto) 1.0, Neut # (Auto) 6.6, Lymph # (Auto) 2.1, [place] # (Auto) 0.6, Eos # (Auto) 0.1, Baso # (Auto) 0.1, Sodium 136, Potassium 2.8 L*, Chloride 103, Carbon Dioxide 26, Anion Gap 9.8, BUN 8, Creatinine 0.60, Estimated Creat Clear 229, Estimated GFR 118, Est GFR ( Amer) 143, Glucose 110 H, Calcium 8.7, Total Bilirubin 0.7, AST 23, ALT 18, Alkaline Phosphatase 71, Total Protein 6.7, Albumin 3.9, Globulin 2.8, Albumin/Globulin Ratio 1.4, Serum HCG, Qual Negative 04/15/24 00:00: Urine Color Yellow, Urine Appearance Clear, Urine pH 6.0, Ur Specific [place] 1.015, Urine Protein Negative, Urine Glucose (UA) Negative, Urine Ketones Negative, Urine Blood Negative, Urine Nitrate Negative, Urine Bilirubin Negative, Urine Urobilinogen 0.2, Ur Leukocyte Esterase Negative, Urine WBC Occasional, Ur Squamous Epith Cells 3-5, Urine Bacteria Trace 04/14/24 22:20 04/14/24 22:20 Orders (Tests/Meds): ED MEDICATIONS Generic Name Dose Route Start Last Admin Trade Name Freq PRN Reason Stop Dose Admin Sodium Chloride 10 ml 04/15/24 00:06 04/15/24 00:07 Sodium Chloride 0.9% 10ml Syr (Rad Only) IV 05/15/24 00:05 10 ml NEEDED PRN Administration Maintain IV Site Sodium Chloride 10 ml 04/15/24 01:28 04/15/24 01:29 Sodium Chloride 0.9% 10ml Syr (Rad Only) IV 05/15/24 01:27 10 ml NEEDED PRN Administration Maintain IV Site Discontinued Medications Generic Name Dose Route Start Last Admin Trade Name Freq PRN Reason Stop Dose Admin Potassium Chloride/Water 100 mls @ 100 mls/hr 04/14/24 23:24 04/14/24 23:39 Potassium Chloride 10meq/100ml Ivpb IV 04/15/24 01:23 100 mls/hr Q1H STU Administration Iopamidol 75 ml 04/15/24 00:06 04/15/24 00:07 Iopamidol-370 (76%);100ml Bottle IV 04/15/24 00:07 75 ml ONCE ONE Administration Iopamidol 70 ml 04/15/24 01:28 04/15/24 01:29 Iopamidol-370 (76%);100ml Bottle IV 04/15/24 01:29 70 ml ONCE ONE Administration Ketorolac Tromethamine 30 mg 04/14/24 23:24 04/14/24 23:38 Ketorolac 30mg/Ml Vial IV 04/14/24 23:25 30 mg ONCE ONE Administration Methocarbamol 500 mg 04/14/24 23:24 04/14/24 23:39 Methocarbamol 500mg Tablet PO 04/14/24 23:25 500 mg ONCE ONE Administration Potassium Chloride 40 meq 04/14/24 23:23 04/14/24 23:39 Potassium Chloride 20meq Tab PO 04/14/24 23:24 40 meq ONCE ONE Administration Rivaroxaban 1 packet 04/15/24 01:57 04/15/24 02:00 Xarelto 15mg Thp 1 Packet Natan PO 04/15/24 01:58 1 packet ONCE ONE Administration Sodium Chloride 40 ml 04/15/24 01:28 04/15/24 01:29 0.9 % Sodium Chloride 50 Ml Vial IV 04/15/24 01:29 40 ml ONCE ONE Administration ORDERS Category Date Time Status CT abdomen pelvis w con Routine Cat Scan 04/14/[address] angio chest PE protocol Stat Cat Scan 04/15/24 01:08 Completed CBC w/Auto Diff [Complete Blood Count Auto Diff] Stat Lab 04/14/24 22:20 Completed CMP [Comprehensive Metabolic Panel] Stat Lab 04/14/24 22:20 Completed HCG Qualitative, Serum Stat Lab 04/14/24 22:20 Completed HIV (1&2) Antibody Rapid Stat Lab 04/14/24 22:11 Ordered Hep C Ab with Reflex to RNA Stat Lab 04/14/24 22:11 Ordered UA [Urinalysis and Microscopic] Stat Lab 04/15/24 00:00 Completed Medical Decision Narrative: 29-year-old female, history of smoking presents for several days of right flank pain.. History was obtained via interactive discussion with patient. On arrival, patient is [afebrile, hemodynamically stable, satting appropriately, alert, oriented x4, GCS 15], moving all extremities spontaneously. Full physical exam performed and significant for right flank tenderness to palpation, Differential includes but is not limited to UTI, pyelonephritis, kidney stone, musculoskeletal pain, PE. Patient was given Toradol, Robaxin for symptomatic management and correction of underlying abnormalities. Workup initiated including CBC CMP UA CT abdomen and pelvis. On re-evaluation, patient [remains afebrile, HD stable.] Laboratory workup independently interpreted by me and significant for moderate hypokalemia with potassium 2.8. Repletion was initiated with both p.o. and IV contrast, total of 70 mill equivalents. Imaging independently interpreted by me and significant for possible PE noted on the CT abdomen pelvis. No evidence of renal pathology. CT chest ordered for further assessment and it shows a right subsegmental pulmonary emboli with associated lung infarct. See radiology read for full review of final results. Admission for PE was considered, but deemed unnecessary due to low PE severity score. Given patient history, exam and workup, patient's presentation most likely represents acute right-sided PE with associated pulmonary infarct. I had a extensive discussion with patient regarding risk factors. She is not on any control, reports that she is a heavy smoker, denies any recent surgery immobilization etc. I spent time encouraging patient to consider smoking cessation as this likely contributed. I recommended that she follow-up with her PCP for recheck of her labs given the hypokalemia. We gave patient a rivaroxaban starter pack as well as a prescription. She is instructed to follow-up with her PCP for further assessment. She was given return precautions regarding anticoagulation. Procedures Risk/Benefits of Procedure(s) Were Explained: Yes Critical Care Critical Care Time Critical Care Time: No
[2024-04-14] MEDS: KETOROLAC 30MG/ML VIAL 30 MG IV (23:38)
[2024-04-14] MEDS: METHOCARBAMOL 500MG TABLET 500 MG PO (23:39)
[2024-04-14] MEDS: POTASSIUM CHLORIDE 20MEQ TAB 40 MEQ PO (23:39)
[2024-04-14] MEDS: KCl 10mEq/100ml 100 ML 100 MEQ IV (23:39)
[2024-04-15] MEDS: SODIUM CHLORIDE 0.9% 10ML SYR (RAD ONLY) 10 ML IV ×2 (00:07→01:29)
[2024-04-15] MEDS: IOPAMIDOL-370 (76%);100ML BOTTLE 75 ML IV (00:07)
[2024-04-15 00:11] LABS: Appearance,Urine CLEAR (Clear); Bilirubin,Urine Negative (Negative); Blood, Urine Negative (Negative); Color,Urine YELLOW (Yellow); Glucose,Urine (UA) Negative (Negative); Ketones,Urine Negative (Negative); Leukocyte Esterase,Urine Negative (Negative); Microscopic, Urine URINE MICROSCOPIC (MICROSCOPIC); Nitrate,Urine Negative (Negative); Protein,Urine Negative (Negative); Specific Gravity, Urine 1.015 (1.005-1.030); Urobilinogen,Urine 0.2 EU/dl (0.2)
[2024-04-15 00:29] LABS: Bacteria,Urine Trace /lpf; WBC,Urine Occasional #/hpf (0-3)
--- NOTE | 2024-04-15 01:08 | CT_ITS ---
PROCEDURE INFORMATION: Exam: CTA Chest With Contrast Exam date and time: 04/15/2024 1:11 AM Age: 29 years old Clinical indication: Abnormal findings; Abnormal radiologic exam of lung or chest; Additional info: Possible pe TECHNIQUE: Imaging protocol: Computed tomographic angiography of the chest with contrast. Exam focused on the arteries. 3D rendering (Not supervised by radiologist): MIP and/or 3D reconstructed images were created by the technologist. Radiation optimization: All CT scans at this facility use at least one of these dose optimization techniques: automated exposure control; mA and/or kV adjustment per patient size (includes targeted exams where dose is matched to clinical indication); or iterative reconstruction. Contrast material: ISOUVE 370; Contrast volume: 70 ml; Contrast route: INTRAVENOUS (IV); COMPARISON: 1. CT ABDOMEN PELVIS W CON 04/15/2024 12:[address] ABDOMEN PELVIS W CON 04/14/2024 11:00 PM 3. CR XR HUMERUS RT 08/22/2023 10:53 PM FINDINGS: Pulmonary arteries: There is fair opacification of the pulmonary arterial tree. Confirming finding on chest CT, there is a segmental right lower lobe pulmonary embolus with an associated pulmonary parenchymal infarct (image 75 series 5). No central or lobar pulmonary embolus is seen. Aorta: Unremarkable. No aortic aneurysm. No aortic dissection. Lungs: Additional questionable subsegmental right upper lobe embolus associated infarct (image 56 series 5). Pleural spaces: Unremarkable. No pneumothorax. No pleural effusion. Heart: Unremarkable. No cardiomegaly. No pericardial effusion. Heart RV/LV ratio: RV to LV ratio is 1.0. Lymph nodes: Unremarkable. No enlarged lymph nodes. Bones/joints: Unremarkable. No acute fracture. Soft tissues: Unremarkable. Other findings: Please see the recent dedicated examination of the abdomen for findings in that region. IMPRESSION: Segmental right lower lobe pulmonary embolus with associated pulmonary parenchymal infarct. Suspicion for additional subsegmental right upper lobe pulmonary embolus. No central or lobar pulmonary embolus is identified. No evidence for right heart strain.
[2024-04-15] MEDS: IOPAMIDOL-370 (76%);100ML BOTTLE 70 ML IV (01:29)
[2024-04-15] MEDS: 0.9 % SODIUM CHLORIDE 50 ML VIAL 40 ML IV (01:29)
[2024-04-15] MEDS: XARELTO 15MG THP 1 PACKET PAK PO (02:00)
[2024-04-15] MEDS: KCl 10mEq/100ml 100 ML 100 MEQ IV (02:10)
[2024-04-15 02:15] VITALS: BP 162/96; PULSE 77; RESP 20; TEMP 36.8; O2SAT 98
== END 2024-04-15 03:25 | disposition home or self-care (01) ==
PROVIDERS: Physician Assistant; Emergency Provider Emergency Medicine; PCP Nurse Practitioner
DX: E87.6 Hypokalemia (principal); I26.99 Other pulmonary embolism without acute cor pulmonale
CPT/HCPCS: 71275; 74177; 80053; 81001; 84703; 85025; 96365; 96375; 99285; J1885; J3480; Q9967